=== PATIENT | male | born 1955 | race Caucasian/White ===

== ENCOUNTER 2016-06-26 12:23 | Emergency (ER) | payer MEDICARE ==
[~2016-06-26 12:23] MED LIST: AMITIZA24 MC1 PO; ASPIRIN EC81 MG PO; BABY ASPIRIN81 MG PO; CARDIZEM CD240 MG PO; COREG25 M1 PO; CYCLOBENZAPRINE5 M1 PO; CYMBALTA60 M1 PO; DICLOFENAC POTA50 M1 PO; FLOMAX0.4 M1 PO; GLUCOPHAGE500 M3 PO; GLUCOPHAGE500 MG PO; LASIX20 M1 PO; LIPITOR40 M1 PO; LIPITOR40 MG PO; LIPITOR80 MG; METFORMIN HCL500 M5 PO; NEURONTIN300 MG; NORCO 5-325 TA1 EACH PO; NUCYNTA50 M1 PO; NUCYNTA50 MG PO; OMEPRAZOLE40 M2 PO; PERCOCET 5/3251 TAB PO; PRILOSEC20 MG PO; SENOKOT-S TABLE1 TAB PO; TENORMIN25 MG PO; TRAMADOL HCL50 MG; TRAZODONE HCL50 M1 PO; TRICOR145 M1 PO; VIT B12 PO; VIT D3 PO; VITAMIN D35000 UNI3 PO; XARELTO10 MG PO; ZESTRIL40 M2 PO; ZETIA10 MG PO
[2016-06-26] MEDS ORDERED: NUCYNTA50 M1 PO (12:46)
[2016-06-26] MEDS ORDERED: NEURONTIN300 M1 PO (12:46)
[2016-06-26] MEDS ORDERED: NORVASC10 M2 PO (12:47)
[2016-06-26] MEDS ORDERED: LISINOPRIL40 M1 PO (14:23)
[2016-06-26] MEDS ORDERED: NITROGLYCERIN0.4 M2 SL (14:24)
[2016-06-26] MEDS ORDERED: MYRBETRIQ50 M1 PO (14:37)
[2016-06-26 15:21] LABS: BASO % 0.9 % (0-2); EOS % 1.9 % (0-7); EOSINOPHIL ABSOLUTE COUNT 0.1 tho/cmm (0.0-0.7); HCT-HEMATOCRIT 32.1 % (36.0-53.5); HGB-HEMOGLOBIN 10.6 gm/dl (13.5-17.0); IMMATURE GRANULOCYTES ABSOLUTE 0.01 tho/cmm (0-0.03); IMMATURE GRANULOCYTES PERCENT 0.3 % (0-0.3); LYMPH % 19.7 % (20-45); LYMPH ABSOLUTE COUNT 0.6 tho/cmm (0.8-4.5); MCH (MEAN CORPUSCULAR HGB) 28.8 pg (28.0-32.0); MCV (MEAN CELL VOLUME) 87.2 fl (82.0-96.0); MEAN PLATELET VOLUME 9.7 cmc (9.4-12.4); MONO % 13.5 % (0-12); MONOCYTE ABSOLUTE COUNT 0.4 tho/cmm (0.0-1.2); NEUTROPHILS % 63.7 % (40-80); PLATELET COUNT 187 tho/cmm (150-450); RED BLOOD COUNT 3.68 mil/cmm (4.40-5.70); RED CELL DISTRIBUTION WIDTH 14.9 % (12.4-16.4); WHITE BLOOD COUNT 3.2 tho/cmm (4.0-10.0)
[2016-06-26 15:33] LABS: ALB/GLOB RATIO 0.8 (0.8-2.0); ALBUMIN 3.3 g/dl (3.5-5.0); ALKALINE PHOSPHATASE 84 U/L (33-138); ALT/SGPT 17 U/L (12-78); ANION GAP 13 mmol/L (0-20); AST/SGOT 21 U/L (10-40); BILIRUBIN,TOTAL 0.3 mg/dl (0.0-1.5); BLOOD UREA NITROGEN 7 mg/dl (6-24); CALCIUM 9.1 mg/dl (8.5-10.5); CARBON DIOXIDE-VENOUS 26 mmol/L (22-32); CHLORIDE 99 mmol/l (96-110); CREATININE 1.15 mg/dl (0.60-1.30); GLUCOSE 97 mg/dL (70-110); LIPASE 181 U/L (73-393); POTASSIUM 3.6 mmol/L (3.7-5.1); SODIUM 134 mmol/L (135-145); eGFR VALUE FOR BLACK 79 mL/Min
[2016-06-26 15:50] LABS: URINE BILIRUBIN SMALL (NEG); URINE BLOOD NEGATIVE (NEG); URINE GLUCOSE (UA) NEGATIVE (NEG); URINE KETONE SMALL (NEG); URINE LEUKOCYTE ESTERASE POSITIVE (NEG); URINE NITRITE NEGATIVE (NEG); URINE PROTEIN MODERATE (NEG); URINE SPECIFIC GRAVITY 1.005 (1.003-1.030)
[2016-06-26 15:54] LABS: URINE APPEARANCE CLEAR; URINE COLOR YELLOW
[2016-06-26 16:05] LABS: PROCALCITONIN 0.16 ng/ml (0.05-0.09)
[2016-06-26 16:20] LABS: URINE MUCUS 1+; URINE RBC 0 /[HPF] (0-5)
[2016-06-26] MEDS ORDERED: NORCO 5-325 TA1 EACH PO (16:47)
[2016-08-23] MEDS ORDERED: NUCYNTA50 M1 PO (10:41)
[2016-08-23] MEDS ORDERED: NEURONTIN300 M1 PO (10:42)
== END 2016-06-26 16:55 ==
LOC: EDMED 12:23
PROVIDERS: Emergency Medicine
DX: K86.1 Other chronic pancreatitis (principal); I25.10 Atherosclerotic heart disease of native coronary artery without angina pectoris; I25.2 Old myocardial infarction; I10 Essential (primary) hypertension; E11.9 Type 2 diabetes mellitus without complications; E78.5 Hyperlipidemia, unspecified; K21.9 Gastro-esophageal reflux disease without esophagitis; Z95.5 Presence of coronary angioplasty implant and graft; Z95.1 Presence of aortocoronary bypass graft; Z90.49 Acquired absence of other specified parts of digestive tract; Z98.890 Other specified postprocedural states; Z79.899 Other long term (current) drug therapy
CPT/HCPCS: J2270; J2405; J7030

== ENCOUNTER 2016-08-27 10:59 | Day surgery (SDC) | payer MEDICARE ==
[~2016-08-27 10:59] MED LIST changes: +LISINOPRIL40 M1 PO; +MYRBETRIQ50 M1 PO; +NEURONTIN300 M1 PO; +NITROGLYCERIN0.4 M2 SL; +NORVASC10 M2 PO
[2016-08-27 12:14] LABS: BASO % 1.2 % (0-2); BASO ABSOLUTE COUNT 0.1 tho/cmm (0.0-0.2); EOS % 2.4 % (0-7); EOSINOPHIL ABSOLUTE COUNT 0.1 tho/cmm (0.0-0.7); HCT-HEMATOCRIT 27.9 % (36.0-53.5); IMMATURE GRANULOCYTES ABSOLUTE 0.01 tho/cmm (0-0.03); IMMATURE GRANULOCYTES PERCENT 0.2 % (0-0.3); LYMPH % 19.5 % (20-45); LYMPH ABSOLUTE COUNT 0.8 tho/cmm (0.8-4.5); MCH (MEAN CORPUSCULAR HGB) 26.9 pg (28.0-32.0); MCHC MEAN CORPUSCULAR HGB CONC 32.3 % (32.0-36.0); MCV (MEAN CELL VOLUME) 83.5 fl (82.0-96.0); MONO % 12.2 % (0-12); MONOCYTE ABSOLUTE COUNT 0.5 tho/cmm (0.0-1.2); NEUTROPHIL ABSOLUTE COUNT 2.7 tho/cmm (1.6-8.0); NEUTROPHIL-AUTOMATED 2.7 tho/cmm (1.6-8.0); NEUTROPHILS % 64.5 % (40-80); PLATELET COUNT 194 tho/cmm (150-450); RED BLOOD COUNT 3.34 mil/cmm (4.40-5.70); RED CELL DISTRIBUTION WIDTH 15.8 % (12.4-16.4); WHITE BLOOD COUNT 4.3 tho/cmm (4.0-10.0)
[2016-08-27 12:26] LABS: ANION GAP 14 mmol/L (0-20); BLOOD UREA NITROGEN 8 mg/dl (6-24); CARBON DIOXIDE-VENOUS 25 mmol/L (22-32); CHLORIDE 106 mmol/l (96-110); CREATININE 1.06 mg/dl (0.60-1.30); GLUCOSE 91 mg/dL (70-110); POTASSIUM 4.4 mmol/L (3.7-5.1); SODIUM 141 mmol/L (135-145); eGFR VALUE FOR BLACK 87 mL/Min
== END 2016-08-27 15:42 ==
LOC: SHSB 10:59 → ENDOS 13:00
PROVIDERS: Anesthesiology
PROC: 0D9 Gastrointestinal System, Drainage (ICD-10-PCS; principal; 2016-08-27)
DX: K86.89 Other specified diseases of pancreas (principal); I25.10 Atherosclerotic heart disease of native coronary artery without angina pectoris; I25.2 Old myocardial infarction; I10 Essential (primary) hypertension; F32.9 Major depressive disorder, single episode, unspecified; E11.9 Type 2 diabetes mellitus without complications; M15.9 Polyosteoarthritis, unspecified; K21.9 Gastro-esophageal reflux disease without esophagitis; Z87.891 Personal history of nicotine dependence; Z88.1 Allergy status to other antibiotic agents; Z88.8 Allergy status to other drugs, medicaments and biological substances; Z95.1 Presence of aortocoronary bypass graft; Z98.890 Other specified postprocedural states